=== PATIENT | male | born 1960 | race Caucasian/White ===

== ENCOUNTER 2017-07-04 10:28 | Emergency (ER) | payer BC ==
[2017-07-04 11:20] VITALS: BP 146/96
--- NOTE | 2017-07-04 11:36 | UC ---
Elbow Pain - HPI Summary HPI Summary: 57M presents with left elbow pain and swelling for 2 weeks. He has an injury on 05/15/17 tripped on fence. He has two puncture wounds not been cleaning. has nonhealing wound on left elbow with erythema and edema. only able to flex till 45 degrees. not diabetic. denies any fever. has been having drainage from the wound. no numbness or tingling. had full ROM after initially injury. <Elizabeth Valdez - Last Filed: 07/04/17 15:38> <Lulú Espinoza - Last Filed: 07/04/17 19:06> - History of Current Complaint Chief Complaint: UCUpperExtremity Stated Complaint: LEFT ELBOW Time Seen by Provider: 07/04/17 11:20 - Allergies/Home Medications Allergies/Adverse Reactions: Allergies Allergy/AdvReac Type Severity Reaction Status Date / Time Celecoxib [From Celebrex] Allergy Nausea Verified 07/04/17 11:23 Home Medications: Home Medications Ibuprofen TAB* [Advil TAB*] 400 mg PO Q12H PRN 07/04/17 [History Confirmed 07/04] PMH/Surg Hx/FS Hx/Imm Hx Endocrine History: Other Other Endocrine History: no DM Cardiovascular History: Other Other Cardiovascular History: no ACS - Surgical History Surgical History: None - Family History Known Family History: Negative: Diabetes - Social History Alcohol Use: Rare Substance Use Type: None Smoking Status (MU): Never Smoked Tobacco - Immunization History Most Recent Tetanus Shot: unknown <Elizabeth Valdez - Last Filed: 07/04/17 15:38> Review of Systems Constitutional: Negative Respiratory: Negative Cardiovascular: Negative Musculoskeletal: Edema - left elbow pain All Other Systems Reviewed And Are Negative: Yes <Elizabeth Valdez - Last Filed: 07/04/17 15:38> Physical Exam Triage Information Reviewed: Yes Appearance: Well-Appearing Vital Signs: Initial Vital Signs Temp 99.4 F 07/04/17 11:12 Pulse 79 07/04/17 11:12 Resp 20 07/04/17 11:12 BP 146/96 07/04/17 11:12 Eye Exam: Normal ENT Exam: Normal Respiratory: Positive: Lungs clear, Normal breath sounds Cardiovascular: Positive: RRR Musculoskeletal: Positive: Other: - edema present near two nonhealing wounds with pus drainage, still has range of motion up to 45 degree flexion with minimal pain edema does not appear to feel like part of elbow joint, erythema around wound Neurological Exam: Normal Psychological Exam: Normal Skin: Positive: Other - erythema to left elbow <Elizabeth Valdez - Last Filed: 07/04/17 15:38> Vital Signs: Initial Vital Signs Temp 99.4 F 07/04/17 11:12 Pulse 79 07/04/17 11:12 Resp 20 07/04/17 11:12 BP 146/96 07/04/17 11:12 <Lulú Espinoza - Last Filed: 07/04/17 19:06> Diagnostics - Radiology elbow Xray Interpretation: Positive (See Comments) - IMPRESSION: THERE IS MINIMAL PERIOSTEAL REACTION OF THE PROXIMAL HUMERUS. IN THE SETTING OF NONHEALING WOUND , THIS IS CONCERNING FOR OSTEOMYELITIS Radiology Interpretation Completed By: Radiologist <Elizabeth Valdez - Last Filed: 07/04/17 15:38> Elbow Pain Course/Dx - Course Course Of Treatment: 57M presents with left elbow pain and swelling for 2 weeks. He has an injury on 05/15/17 tripped on fence. He has two puncture wounds not been cleaning. has nonhealing wound on left elbow with erythema and edema. only able to flex till 45 degrees. not diabetic. denies any fever. has been having drainage from the wound. no numbness or tingling. had full ROM after initially injury. on exam has erythema and edema near left elbow with drainage from nonhealing wound. still has ROM elbow so do not suspect septic. xray being read as potentially a osteo, diff dx osteo, septic. patient needs further work up then what can do here. patient wants to go to [place]. on phone for 13 mins and no one picked up so dr espinoza advised just to send patient to [place]. patient understands and agrees with plan. - Differential Dx/Diagnosis Differential Diagnosis/HQI/PQRI: Fracture (Closed), Other - osteo Provider Diagnoses: left elbow infection <Elizabeth Valdez - Last Filed: 07/04/17 15:38> Discharge <Elizabeth Valdez - Last Filed: 07/04/17 15:38> <Lulú Espinoza - Last Filed: 07/04/17 19:06> - Discharge Plan Condition: Good Disposition: HOME Referrals: MICHAEL Hawk [Primary Care Provider] - Additional Instructions: It is advised that you go to the ED for further work up for your elbow infection , this may entail blood work and an ortho consult Follow up with primary about blood pressure within 5 days Attestation Statement User Type: Provider - I was available for consult. This patient was seen by the MARY GRACE. The patient was not presented to, seen by, or examined by me. -Lizette <Lulú Espinoza - Last Filed: 07/04/17 19:06>
--- NOTE | 2017-07-04 11:48 | RAD ---
HISTORY: Left elbow injury, nonhealing wound left leg and on COMPARISONS: None VIEWS: 4, Frontal, lateral, and oblique views of the left elbow FINDINGS: BONE DENSITY: Normal. BONES: There is no displaced fracture. 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 ALIGNMENT: There is no dislocation. SOFT TISSUES: There is soft tissue swelling OTHER FINDINGS: None. IMPRESSION: THERE IS MINIMAL PERIOSTEAL REACTION OF THE PROXIMAL HUMERUS. IN THE SETTING OF NONHEALING WOUND, THIS IS CONCERNING FOR OSTEOMYELITIS
[2017-07-04] MEDS ORDERED: Tetan/Diph/Pertus SYR(Tdap)* 0.5 ML SYR(BOOSTRIX) use SYR IM ONE (11:57)
== END 2017-07-04 12:23 | disposition home or self-care (01) ==
LOC: UCCORT 10:28
DX: M25.522 Pain in left elbow (principal); Z88.8 Allergy status to other drugs, medicaments and biological substances
CPT/HCPCS: 90471; 90715; 99202; G0463